=== PATIENT | male | born 1985 ===

== ENCOUNTER 2021-03-22 17:23 | Emergency (ER) | payer OTHER ==
[~2021-03-22] VITALS: Ht 182.9 cm; Wt 78.0 kg
--- NOTE | 2021-03-22 17:35 | NUR ---
NA X 1
[2021-03-22 17:50] VITALS: BP 113/79
== END 2021-03-22 19:05 | disposition left against medical advice (07) ==
LOC: ED 18:59
DX: R10.9 Unspecified abdominal pain (principal); Z53.21 Procedure and treatment not carried out due to patient leaving prior to being seen by health care provider